=== PATIENT | female | born 1955 | race Two or more races ===

== ENCOUNTER 2022-09-09 17:10 | Inpatient (IN) | payer MEDICARE, OTHER ==
[~2022-09-09] VITALS: Ht 165.1 cm; Wt 64.0 kg
[2022-09-09 17:47] LABS: MEAN CORPUSCULAR HEMOGLOBIN 28.5 uug (24.7-32.8); MEAN CORPUSCULAR VOLUME 86.2 fL (75.5-95.3); PLATELET COUNT (AUTO) 217 K/uL (179-408)
[2022-09-09] MEDS ORDERED: MAG355OR18 PO (17:54)
[2022-09-09] MEDS ORDERED: CLOP75TA33 PO (17:54)
[2022-09-09] MEDS ORDERED: DOCU-141 PO (17:54)
[2022-09-09] MEDS ORDERED: NA P133E RC (17:54)
[2022-09-09] MEDS ORDERED: MAGN400O6 PO (17:54)
[2022-09-09] MEDS ORDERED: POLY17PO4 PO (17:54)
[2022-09-09] MEDS ORDERED: PREG50CA PO (17:54)
[2022-09-09] MEDS ORDERED: OLAN5TAB3 PO (17:54)
[2022-09-09] MEDS ORDERED: ATOR80TA PO (17:54)
[2022-09-09] MEDS ORDERED: ACET-2154 PO (17:54)
[2022-09-09] MEDS ORDERED: DIVA250T4 PO (17:54)
[2022-09-09] MEDS ORDERED: ONDA4TAB5 PO (17:54)
[2022-09-09] MEDS ORDERED: ERGOCALCIFEROL PO (17:54)
[2022-09-09] MEDS ORDERED: CALC-494 PO (17:54)
[2022-09-09 17:58] LABS: POTASSIUM 3.9 mmol/L (3.5-5.1)
[2022-09-09 18:04] LABS: BILIRUBIN,TOTAL 0.2 mg/dL (0.2-1.0); TOTAL PROTEIN, SERUM 6.9 g/dL (6.4-8.2)
[2022-09-09 18:07] LABS: ACETAMINOPHEN < 10.0 ug/mL (10-30)
--- NOTE | 2022-09-09 19:07 | NUR ---
PT IS IN ROOM #2B. DR HOWARD EVALUATED THE PT.
[2022-09-09 20:06] LABS: *BILIRUBIN,URIN NEGATIVE (NEGATIVE); *BLOOD, URINE 2+ (NEGATIVE); *CLARITY,URINE CLEAR (CLEAR); *COLOR,URINE YELLOW (YELLOW); *KETONES,URINE NEGATIVE (NEGATIVE); *UROBILINOGEN,URINE 0.2 E.U./dl (NORMAL); LEUKOCYTE ESTERASE ,URINE TRACE (NEGATIVE); NITRITE, URINE NEGATIVE (NEGATIVE); UGLUCOSE NEGATIVE (NEGATIVE)
[2022-09-09 20:15] LABS: *AMPHETAMINE, URINE NEGATIVE (NEGATIVE); *CANNABINOID, URINE NEGATIVE (NEGATIVE); *COCCAINE, URINE NEGATIVE (NEGATIVE); *PHENCYCLIDINE SCREEN,URINE NEGATIVE (NEGATIVE)
--- NOTE | 2022-09-09 20:31 | NUR ---
Called Nataliia (Crisis team) for psych evaluation. Per Nataliia, she will come to evaluate patient.
[2022-09-09 20:32] LABS: BACTERIA,URINE FEW /HPF (NONE SEEN); SQUAMOUS EPITHELIAL CELL,UR MODERATE /HPF (NONE SEEN)
[2022-09-09] MEDS ORDERED: MAGNESIUM HYDROXIDE 30 ML LIQUID UDC PO PRN (21:00)
[2022-09-09] MEDS ORDERED: MAG HYDROX/AL HYDROX/SIMETH 30 ML LIQUID UDC PO PRN (21:00)
--- NOTE | 2022-09-09 22:33 | NUR ---
Per Dr. Weir patient is medically cleared.
[2022-09-09] MEDS ORDERED: HALOPERIDOL LACTATE 5 MG/1 ML VIAL ONE (22:35)
[2022-09-09] MEDS ORDERED: diphenhydrAMINE 50 MG/1 ML VIAL ONE (22:35)
[2022-09-09] MEDS ORDERED: LORAZEPAM 2 MG/1 ML VIAL ONE (22:36)
[2022-09-09] MEDS ORDERED: HALOPERIDOL LACTATE 5 MG/1 ML VIAL IM ONE (22:45)
[2022-09-09] MEDS ORDERED: diphenhydrAMINE 50 MG/1 ML VIAL IM ONE (22:45)
[2022-09-09] MEDS ORDERED: LORAZEPAM 2 MG/1 ML VIAL IM ONE (22:45)
--- NOTE | 2022-09-09 22:51 | NUR ---
Called third floor to give report to M[facility]. RN unavaliable at this time. Waiting for call back.
--- NOTE | 2022-09-09 23:00 | NUR ---
Report given to Didier JORDAN.
--- NOTE | 2022-09-09 23:05 | NUR ---
Patient taken to MHU room 145B via wheelchair with personal belongings. Patient in stable condition, no signs of acute distress noted.
[2022-09-09] MEDS ORDERED: CALCIUM CARBONATE 500 MG TAB.CHEW PO PRN (23:45)
[2022-09-09] MEDS ORDERED: ACETAMINOPHEN 325 MG TABLET PO PRN (23:45)
[2022-09-09 23:57] VITALS: BP 98/59; TEMP 98.4; O2SAT 99
[2022-09-10] MEDS ORDERED: MAGNESIUM HYDROXIDE 30 ML LIQUID UDC PO PRN
[2022-09-10] MEDS ORDERED: BLOOD SUGAR DIAGNOSTIC 1 EACH STRIP VI ONE
[2022-09-10] MEDS ORDERED: MAG HYDROX/AL HYDROX/SIMETH 30 ML LIQUID UDC PO PRN
--- NOTE | 2022-09-10 02:29 | NUR ---
Nursing Admission Note: Received 67 y/o female on a 5150 hold d/t being Gravely Disabled. Patient resides at [facility] in [place], [place]. Per hold, pt had become too hard to care for via refusing care from her staff, becoming aggressive toward them, and also tried to elope from her facility. Upon face to face assessment, patient was AOx1, confused, disoriented, disorganized, disheveled, and over-all non-compliant with direction/orders. Per ER report, patient constantly wandered and refused to follow directions. Although she is self-ambulatory, she has an unsteady gait and balance, and was x2 assist during admission. It was possibly d/t ER staff having to give her IM cocktail (2mg Ativan, 50mg Benadryl, 5mg Haldol). Pt was given her Advisement and Patient's Handbook. She will be under the care of Dr. Burns and GEODETIC SURVEYOR TECHNOLOGIST Victor Hugo.
[2022-09-10] MEDS: LORAZEPAM 0.5 MG TABLET PO PRN ×2 (03:20→21:04)
--- NOTE | 2022-09-10 03:21 | NUR ---
Patient became restless and continued to try to get out of her gerichair that was positioned next to the nurses station. Gave Ativan 0.5mg po prn for anxiety mgt. Safe environment provided. Will continue to monitor.
[2022-09-10] MEDS: ACETAMINOPHEN 325 MG TABLET PO PRN (05:36)
[2022-09-10 07:48] VITALS: BP 121/69; TEMP 98.4; O2SAT 99
[2022-09-10] MEDS: CLOPIDOGREL 75 MG TABLET PO SCH (08:41)
[2022-09-10] MEDS: DOCUSATE SODIUM 100 MG CAPSULE PO SCH (08:41)
[2022-09-10] MEDS: MIRALAX 17 GM POWD.PACK PO SCH (08:42)
[2022-09-10 09:08] LABS: POTASSIUM 4.2 mmol/L (3.5-5.1)
[2022-09-10] MEDS: OLANZAPINE 5 MG TABLET PO SCH ×2 (12:41→17:13)
[2022-09-10] MEDS: DIVALPROEX 250 MG TABLET.DR PO SCH ×2 (12:41→17:14)
--- NOTE | 2022-09-10 14:29 | NUR ---
Patient is withdrawn, isolative, low energy, quiet, forgetful, confused, disorganized, compliant with medications, preoccupied, anxious at times. Patient is A/O X 1 to person. Emotional support provided. Fall and safety precautions implemented.
--- NOTE | 2022-09-10 15:37 | NUR ---
KINZA Initial Discharge Note: Pt currently resides at [facility] ([phone]) located at [address] [place] [address]. KINZA contacted pt's son, Kevin and left a voicemail for a call back to discuss pt's discharge plan. It is unclear at this time if pt is welcome back upon discharge. KINZA will continue to work with tp, family and MD to ensure a safe and proper discharge plan.
--- NOTE | 2022-09-10 15:40 | NUR ---
Firearms Report: Claims Support Specialist completed and submitted a [employer] firearms report for 5150 grave disability certifications. A copy of report has been placed in patient chart.
[2022-09-10 16:01] VITALS: BP 105/63; TEMP 97.6; O2SAT 98
[2022-09-10] MEDS: PREGABALIN 50 MG CAPSULE PO SCH (17:14)
[2022-09-10 20:39] VITALS: BP 116/64; TEMP 98.2; O2SAT 99
[2022-09-10] MEDS: ATORVASTATIN 40 MG TABLET PO SCH (21:03)
--- NOTE | 2022-09-11 06:14 | NUR ---
Patient stayed in her room for entire shift. She is self ambulatory and was able to bring herself to her restroom. Safe environment provided.
[2022-09-11 08:08] VITALS: BP 126/64; TEMP 98; O2SAT 96
[2022-09-11] MEDS: MIRALAX 17 GM POWD.PACK PO SCH (08:20)
[2022-09-11] MEDS: PREGABALIN 50 MG CAPSULE PO SCH ×2 (08:21→16:11)
[2022-09-11] MEDS: DIVALPROEX 250 MG TABLET.DR PO SCH ×3 (08:21→16:11)
[2022-09-11] MEDS: DOCUSATE SODIUM 100 MG CAPSULE PO SCH (08:21)
[2022-09-11] MEDS: CLOPIDOGREL 75 MG TABLET PO SCH (08:21)
[2022-09-11] MEDS: OLANZAPINE 5 MG TABLET PO SCH ×3 (08:21→16:11)
[2022-09-11] MEDS: LORAZEPAM 0.5 MG TABLET PO PRN ×2 (10:56→21:57)
[2022-09-11 15:13] VITALS: BP 100/46; TEMP 98; O2SAT 96
[2022-09-11 20:00] VITALS: BP 105/73; TEMP 98.7; O2SAT 97
[2022-09-11] MEDS: ATORVASTATIN 40 MG TABLET PO SCH (21:57)
[2022-09-12 07:58] VITALS: BP 104/60; TEMP 98.4; O2SAT 97
[2022-09-12] MEDS: PREGABALIN 50 MG CAPSULE PO SCH ×2 (08:25→16:59)
[2022-09-12] MEDS: OLANZAPINE 5 MG TABLET PO SCH ×3 (08:25→16:59)
[2022-09-12] MEDS: CLOPIDOGREL 75 MG TABLET PO SCH (08:25)
[2022-09-12] MEDS: MIRALAX 17 GM POWD.PACK PO SCH (08:25)
[2022-09-12] MEDS: DOCUSATE SODIUM 100 MG CAPSULE PO SCH (08:25)
[2022-09-12] MEDS: DIVALPROEX 250 MG TABLET.DR PO SCH ×3 (08:25→16:59)
--- NOTE | 2022-09-12 14:59 | NUR ---
Patient is withdrawn, quiet, isolative, not engage in activities or interactions, cooperative with nursing care, compliant with medications. Patient is A/O X 2 to person. Emotional support provided. Fall and safety precautions provided.
[2022-09-12 16:19] VITALS: BP 99/51; TEMP 98.1; O2SAT 97
[2022-09-12] MEDS: ACETAMINOPHEN 325 MG TABLET PO PRN (19:48)
[2022-09-12] MEDS: LORAZEPAM 0.5 MG TABLET PO PRN (19:48)
[2022-09-12 20:05] VITALS: BP 122/77; TEMP 98.4; O2SAT 99
[2022-09-12] MEDS: ATORVASTATIN 40 MG TABLET PO SCH (20:44)
[2022-09-12] MEDS: TEMAZEPAM 7.5 MG CAPSULE PO PRN (21:29)
--- NOTE | 2022-09-13 04:36 | NUR ---
Pt is confused, disoriented, anxious, restless and nonsensical. Pt was pacing all over the unit going into other patients rooms. Pt was pushing staff to go in to the nursing station. Pt stated "that chair is mine let me in that is my chair". Pt was redirected and reoriented. Pt is compliant with medications. Pt is A/O X1 and unable to care for self and needs assistance with ADLs. Reassurance provided, safety measures in place, continue to monitor for safety,continue with treatment plan.
[2022-09-13 07:37] VITALS: BP 107/64; TEMP 97.4; O2SAT 97
[2022-09-13] MEDS: OLANZAPINE 5 MG TABLET PO SCH ×2 (08:31→12:18)
[2022-09-13] MEDS: PREGABALIN 50 MG CAPSULE PO SCH ×2 (08:31→16:27)
[2022-09-13] MEDS: DIVALPROEX 250 MG TABLET.DR PO SCH ×3 (08:31→16:27)
[2022-09-13] MEDS: CLOPIDOGREL 75 MG TABLET PO SCH (08:32)
[2022-09-13] MEDS: MIRALAX 17 GM POWD.PACK PO SCH (08:32)
[2022-09-13] MEDS: DOCUSATE SODIUM 100 MG CAPSULE PO SCH (08:32)
[2022-09-13 15:18] LABS: *BILIRUBIN,URIN NEGATIVE (NEGATIVE); *CLARITY,URINE CLEAR (CLEAR); *COLOR,URINE YELLOW (YELLOW); *KETONES,URINE NEGATIVE (NEGATIVE); *UROBILINOGEN,URINE 0.2 E.U./dl (NORMAL); LEUKOCYTE ESTERASE ,URINE NEGATIVE (NEGATIVE); NITRITE, URINE NEGATIVE (NEGATIVE); UGLUCOSE NEGATIVE (NEGATIVE)
[2022-09-13 15:20] LABS: *BLOOD, URINE TRACE (NEGATIVE)
[2022-09-13 16:18] VITALS: BP 95/54; TEMP 97.9; O2SAT 96
[2022-09-13 17:34] LABS: BACTERIA,URINE FEW /HPF (NONE SEEN); SQUAMOUS EPITHELIAL CELL,UR FEW /HPF (NONE SEEN); WBC,URINE 0-3 /HPF (0-3)
--- NOTE | 2022-09-13 18:41 | NUR ---
patient is confused and disoriented restless wandering in the unit ,patient unable to follow direction get in to everyone's room, compliant with all medication .no s/s of pain or discomfort.patient with poor insight and poor impulse control will close monitoring for safety.
[2022-09-13 19:59] VITALS: BP 136/60; TEMP 97.6; O2SAT 95
[2022-09-13] MEDS: OLANZAPINE 2.5 MG TABLET PO SCH (20:14)
[2022-09-13] MEDS: ATORVASTATIN 40 MG TABLET PO SCH (20:14)
[2022-09-13] MEDS: LORAZEPAM 0.5 MG TABLET PO PRN (21:56)
--- NOTE | 2022-09-13 22:30 | NUR ---
Patient noted A/O x1. she is restless, pacing the hallway. she is intrusive, she gets into other patient's rooms. She is hard to redirect, she gets easily irritable. Patient requires constant reality checks and supervision. She requires PO PRN Ativan. Patient is reassured for her safety. safety and fall precautions are in place. She was given PO Fluids and snacks. will continue to monitor.
[2022-09-13] MEDS: TEMAZEPAM 7.5 MG CAPSULE PO PRN (22:55)
[2022-09-14 07:54] VITALS: BP 93/49; TEMP 98.3; O2SAT 97
[2022-09-14] MEDS: CLOPIDOGREL 75 MG TABLET PO SCH (08:54)
[2022-09-14] MEDS: PREGABALIN 50 MG CAPSULE PO SCH ×2 (08:54→16:33)
[2022-09-14] MEDS: DIVALPROEX 250 MG TABLET.DR PO SCH ×3 (08:54→16:33)
[2022-09-14] MEDS: DOCUSATE SODIUM 100 MG CAPSULE PO SCH (08:55)
[2022-09-14] MEDS: MIRALAX 17 GM POWD.PACK PO SCH ×2 (08:56→12:56)
[2022-09-14] MEDS: OLANZAPINE 5 MG TABLET PO SCH ×2 (08:56→16:33)
[2022-09-14 16:18] VITALS: BP 118/73; TEMP 98; O2SAT 98
[2022-09-14] MEDS: GLUCERNA SHAKE 237 ML CAN PO SCH (16:34)
[2022-09-14 20:02] VITALS: BP 101/70; TEMP 98.1; O2SAT 96
--- NOTE | 2022-09-14 20:30 | NUR ---
received patient in her room in bed. She is noted sleeping but easily arousable. she is noted A/O x 1 her speech is disorganized, she is forgetful. she stated, "I am ready to go home". she has impaired insight and judgment as to the reason for her admission to MHU. Patient needs constant reality orientation and closed supervisions as she wonders into other patient's rooms. PO fluids and snacks were given. she is reassured for his safety. safety and fall precautions are in place. will continue to monitor.
[2022-09-14] MEDS: ATORVASTATIN 40 MG TABLET PO SCH (21:07)
[2022-09-14] MEDS: OLANZAPINE 2.5 MG TABLET PO SCH (21:07)
[2022-09-14] MEDS: LORAZEPAM 0.5 MG TABLET PO PRN (22:41)
--- NOTE | 2022-09-15 07:07 | NUR ---
PATIENT SLEPT FOR APPROX 5 HRS THROUGH THE NIGHT.SHE IS NOTED LESS ANXIOUS LESS RESTLESS. SHE IS ABLE TO COMPLY WITH PLAN OF CARE. WILL CONTINUE TO MONITOR.
--- NOTE | 2022-09-15 07:15 | NUR ---
GPS Nursing notes: Patient is lying in bed asleep with no S/S of distress noted. fall and safety precaution implemented, will continue to monitor.
[2022-09-15 08:08] VITALS: BP 100/52; TEMP 97.6; O2SAT 99
[2022-09-15 08:27] LABS: HEMATOCRIT 39.6 % (31.2-41.9); MEAN CORPUSCULAR HEMOGLOBIN 28.6 uug (24.7-32.8); MEAN CORPUSCULAR VOLUME 86.4 fL (75.5-95.3); PLATELET COUNT (AUTO) 221 K/uL (179-408)
[2022-09-15] MEDS: CLOPIDOGREL 75 MG TABLET PO SCH (08:50)
[2022-09-15] MEDS: GLUCERNA SHAKE 237 ML CAN PO SCH ×2 (08:50→16:42)
[2022-09-15] MEDS: OLANZAPINE 5 MG TABLET PO SCH ×2 (08:50→16:42)
[2022-09-15] MEDS: DOCUSATE SODIUM 100 MG CAPSULE PO SCH (08:50)
[2022-09-15] MEDS: MIRALAX 17 GM POWD.PACK PO SCH (08:50)
[2022-09-15] MEDS: DIVALPROEX 250 MG TABLET.DR PO SCH ×3 (08:50→16:42)
[2022-09-15] MEDS: PREGABALIN 50 MG CAPSULE PO SCH ×2 (08:50→16:42)
[2022-09-15 09:06] LABS: BILIRUBIN,TOTAL 0.4 mg/dL (0.2-1.0); CREATININE 0.9 mg/dL (0.6-1.3); POTASSIUM 4.1 mmol/L (3.5-5.1); TOTAL PROTEIN, SERUM 6.6 g/dL (6.4-8.2)
--- NOTE | 2022-09-15 10:58 | NUR ---
GPS Notes: Patient is guarded, isolative, denies pain or discomforts, medication compliant, ate breakfast, refused to go to groups, 'No I just want to stay here". fall and safety precaution implemented, emotional support provided, will continue to monitor.
[2022-09-15 16:45] VITALS: BP 98/48; TEMP 97.8; O2SAT 98
--- NOTE | 2022-09-15 17:56 | NUR ---
GPS Notes: Patient stayed in room most the day, patient stated, "Thank you for you help". non-social, refused groups, walks to the bathroom with steady gait with good balance, fall and safety precaution implemented, emotional support provided.
[2022-09-15 19:58] VITALS: BP 101/50; TEMP 97.9; O2SAT 98
--- NOTE | 2022-09-15 20:30 | NUR ---
received patient in her room in bed. She is noted sleeping but easily arousable. she is noted A/O x1. she is forgetful. She is able to ambulate with steady gait and able to make her needs known. pt is unable to have a meaningful conversation with this typewriter ribbon winder. Patient needs constant reality orientation and closed supervision. PO fluids and snacks were given. she is reassured for her safety. safety and fall precautions are in place. will continue to monitor.
[2022-09-15] MEDS: OLANZAPINE 2.5 MG TABLET PO SCH (21:50)
[2022-09-15] MEDS: ATORVASTATIN 40 MG TABLET PO SCH (21:50)
[2022-09-16 07:53] VITALS: BP 115/60; TEMP 98; O2SAT 98
[2022-09-16] MEDS: CLOPIDOGREL 75 MG TABLET PO SCH (09:08)
[2022-09-16] MEDS: DOCUSATE SODIUM 100 MG CAPSULE PO SCH (09:08)
[2022-09-16] MEDS: MIRALAX 17 GM POWD.PACK PO SCH (09:08)
[2022-09-16] MEDS: OLANZAPINE 5 MG TABLET PO SCH ×2 (09:08→17:31)
[2022-09-16] MEDS: PREGABALIN 50 MG CAPSULE PO SCH ×2 (09:08→17:31)
[2022-09-16] MEDS: DIVALPROEX 250 MG TABLET.DR PO SCH ×3 (09:08→17:31)
[2022-09-16] MEDS: GLUCERNA SHAKE 237 ML CAN PO SCH ×2 (09:09→17:32)
--- NOTE | 2022-09-16 10:05 | NUR ---
Patient had court hearing today, and roof bolting coal miner Luci Moore gave 14 Day hold probable cause for GD.
[2022-09-16 15:24] VITALS: BP 107/68; TEMP 98; O2SAT 98
--- NOTE | 2022-09-16 15:59 | NUR ---
Received patient sleeping in her room. Patient is A/O X 1 -2 to person. Patient is disorganized, forgetful, disoriented, cooperative with nursing care, compliant with medications. Patient is more interactive with staff, demanding, needy. Patient is encourage to verbalize feelings and emotions. Fall and safety precautions implemented.
[2022-09-16 20:19] VITALS: BP 108/73; TEMP 98.2
[2022-09-16] MEDS: OLANZAPINE 2.5 MG TABLET PO SCH (20:30)
[2022-09-16] MEDS: ATORVASTATIN 40 MG TABLET PO SCH (20:30)
[2022-09-16] MEDS: TEMAZEPAM 7.5 MG CAPSULE PO PRN (21:29)
--- NOTE | 2022-09-17 05:32 | NUR ---
Patient received in the hallway, intrusive, going inside the nursing station. Patient needs re-direction. she is confused, disorganized and forgetful. She is med-compliant with minimal prompting needed. PRN temazepam give, effective. Slept 6H this shift. No distress noted. Frequent rounding observed, patient kept safe at all times.
[2022-09-17 08:01] VITALS: BP 140/84; TEMP 98; O2SAT 98
[2022-09-17] MEDS: DIVALPROEX 250 MG TABLET.DR PO SCH ×3 (09:12→17:47)
[2022-09-17] MEDS: PREGABALIN 50 MG CAPSULE PO SCH ×2 (09:12→17:47)
[2022-09-17] MEDS: GLUCERNA SHAKE 237 ML CAN PO SCH ×2 (09:13→17:48)
[2022-09-17] MEDS: DOCUSATE SODIUM 100 MG CAPSULE PO SCH (09:13)
[2022-09-17] MEDS: MIRALAX 17 GM POWD.PACK PO SCH (09:13)
[2022-09-17] MEDS: OLANZAPINE 5 MG TABLET PO SCH ×2 (09:13→17:47)
[2022-09-17] MEDS: CLOPIDOGREL 75 MG TABLET PO SCH (09:13)
[2022-09-17 15:16] VITALS: BP 98/65; TEMP 98; O2SAT 98
--- NOTE | 2022-09-17 16:17 | NUR ---
Patient is confused, forgetful, intrusive, pacing in the hallway, fixated on leaving the hospital. Patient states "I need to go home now, where's the exit?" Patient is cooperative with nursing care, compliant with medications, needs lots of redirection. Reassurance given. Fall and safety precautions implemented.
[2022-09-17 20:00] VITALS: BP 118/72; TEMP 98.5; O2SAT 98
[2022-09-17] MEDS: OLANZAPINE 2.5 MG TABLET PO SCH (21:54)
[2022-09-17] MEDS: ATORVASTATIN 40 MG TABLET PO SCH (21:55)
[2022-09-18 07:18] LABS: CREATININE 0.9 mg/dL (0.6-1.3); POTASSIUM 3.8 mmol/L (3.5-5.1)
[2022-09-18 07:30] VITALS: BP 125/56; TEMP 98.2; O2SAT 100
[2022-09-18] MEDS: OLANZAPINE 5 MG TABLET PO SCH ×2 (08:46→16:46)
[2022-09-18] MEDS: PREGABALIN 50 MG CAPSULE PO SCH ×2 (08:46→16:46)
[2022-09-18] MEDS: DOCUSATE SODIUM 100 MG CAPSULE PO SCH (08:46)
[2022-09-18] MEDS: MIRALAX 17 GM POWD.PACK PO SCH (08:46)
[2022-09-18] MEDS: DIVALPROEX 250 MG TABLET.DR PO SCH ×3 (08:46→16:46)
[2022-09-18] MEDS: GLUCERNA SHAKE 237 ML CAN PO SCH ×2 (08:46→16:47)
[2022-09-18] MEDS: CLOPIDOGREL 75 MG TABLET PO SCH (08:46)
--- NOTE | 2022-09-18 15:03 | NUR ---
Patient is intrusive, goes to nursing station and other patient's room constantly, needs to be redirected all the time, confused, forgetful, pleasant, restless, paces int he hallway looking for the exit. Patient is A/O X 2 to person. Reassurance given. Fall and safety precautions implemented.
[2022-09-18 15:15] VITALS: BP 116/69; TEMP 98.2; O2SAT 98
[2022-09-18 19:56] VITALS: BP 119/67; TEMP 98.1; O2SAT 98
[2022-09-18] MEDS: LORAZEPAM 0.5 MG TABLET PO PRN (20:01)
[2022-09-18] MEDS: ATORVASTATIN 40 MG TABLET PO SCH (20:01)
[2022-09-18] MEDS: OLANZAPINE 2.5 MG TABLET PO SCH (20:51)
--- NOTE | 2022-09-18 21:23 | NUR ---
GPS: Remains confused,disoriented. Poor insight to present situation. Pt.was anxious,restless and going in and out of other pt's rooms. Frequent re-direction provided by staff. Meds.as ordered. Fall precautions observed. Will continue to monitor.
[2022-09-18] MEDS: TEMAZEPAM 7.5 MG CAPSULE PO PRN (22:49)
--- NOTE | 2022-09-19 00:32 | NUR ---
GPS: Pt.remains awake at this time. Sleeping pill given earlier was ineffective. Remains anxious,confused,forgetful and pacing back and forth inside her room. Constant re-direction provided by staff. Environment kept free from hazard at all times. Will continue to monitor behavior.
[2022-09-19 07:48] VITALS: BP 114/76; TEMP 98.9; O2SAT 99
[2022-09-19 07:53] VITALS: BP 93/53; TEMP 97.4; O2SAT 98
[2022-09-19] MEDS: CLOPIDOGREL 75 MG TABLET PO SCH (08:43)
[2022-09-19] MEDS: DIVALPROEX 250 MG TABLET.DR PO SCH ×3 (08:43→16:48)
[2022-09-19] MEDS: OLANZAPINE 5 MG TABLET PO SCH ×2 (08:43→16:48)
[2022-09-19] MEDS: DOCUSATE SODIUM 100 MG CAPSULE PO SCH (08:43)
[2022-09-19] MEDS: PREGABALIN 50 MG CAPSULE PO SCH ×2 (08:43→16:48)
[2022-09-19] MEDS: GLUCERNA SHAKE 237 ML CAN PO SCH ×2 (08:44→17:00)
[2022-09-19] MEDS: MIRALAX 17 GM POWD.PACK PO SCH (09:23)
[2022-09-19 16:01] VITALS: BP 101/61; TEMP 98; O2SAT 97
--- NOTE | 2022-09-19 16:25 | NUR ---
Pt is confused, disoriented, less anxious and less restless . Pt slept for most of the day .Pt does not have a viable plan for care and can not have a meaning full conversation. Pt is compliant with medications and nursing care. Pt is A/O X1 and unable to care for self and needs assistance with ADLs. Reassurance and emotional provided, safety measures in place, continue to monitor for safety,continue with treatment plan.
[2022-09-19 19:47] VITALS: BP 121/66; TEMP 98; O2SAT 96
[2022-09-19] MEDS: ATORVASTATIN 40 MG TABLET PO SCH (20:36)
[2022-09-19] MEDS: OLANZAPINE 2.5 MG TABLET PO SCH (20:36)
[2022-09-19] MEDS: LORAZEPAM 0.5 MG TABLET PO PRN (22:41)
--- NOTE | 2022-09-19 22:53 | NUR ---
Patient was restless, confused, disoriented, and very difficult to redirect. Patient would not listen to this nurse nor other nurses on shift. Placed patient onto gerichair d/t wandering, panic, and experiencing paranoia. Safe environment provided. Gave Ativan 0.5mg po prn. Will continue to monitor.
[2022-09-20] MEDS: TEMAZEPAM 7.5 MG CAPSULE PO PRN (02:30)
[2022-09-20 07:52] VITALS: BP 95/52; TEMP 97.6; O2SAT 99
[2022-09-20] MEDS: DOCUSATE SODIUM 100 MG CAPSULE PO SCH (08:41)
[2022-09-20] MEDS: DIVALPROEX 250 MG TABLET.DR PO SCH ×3 (08:41→16:54)
[2022-09-20] MEDS: PREGABALIN 50 MG CAPSULE PO SCH ×2 (08:41→16:54)
[2022-09-20] MEDS: OLANZAPINE 5 MG TABLET PO SCH ×2 (08:41→16:53)
[2022-09-20] MEDS: CLOPIDOGREL 75 MG TABLET PO SCH (08:41)
[2022-09-20] MEDS: GLUCERNA SHAKE 237 ML CAN PO SCH ×2 (08:43→17:13)
[2022-09-20] MEDS: MIRALAX 17 GM POWD.PACK PO SCH (08:51)
[2022-09-20 15:58] VITALS: BP 100/66; TEMP 97.8; O2SAT 68
--- NOTE | 2022-09-20 16:07 | NUR ---
Pt is A/O X1 and still confused, disoriented, less anxious and more redirectable. Pt is compliant with medications and nursing care. Emotional provided, safety measures in place, continue to monitor for safety,continue with treatment plan.
[2022-09-20] MEDS: OLANZAPINE 2.5 MG TABLET PO SCH (20:36)
[2022-09-20] MEDS: ATORVASTATIN 40 MG TABLET PO SCH (20:36)
[2022-09-20 21:43] VITALS: BP 116/71; TEMP 98.3; O2SAT 97
[2022-09-20] MEDS: LORAZEPAM 0.5 MG TABLET PO PRN (22:59)
--- NOTE | 2022-09-20 22:59 | NUR ---
Patient was restless, disoriented, and still confused. Pt was still hard to redirect. Pt was found taking off her bedsheets, blankets, etc, and as usual stated it was someone else that did it and not her. Safe environment continually provided. Will continue to monitor. Gave Ativan 0.5mg po prn to help with restlessness.
[2022-09-21] MEDS: TEMAZEPAM 7.5 MG CAPSULE PO PRN (01:02)
--- NOTE | 2022-09-21 01:07 | NUR ---
Patient woke up and became restless without a plan of care. She wander into the waggoner making nonsensical statements. Re-directable, yet needs continuous prompting and guidance. Gave Temazepam 7.5mg po prn to help her sleep. Safety measures provided. Will continue to monitor.
[2022-09-21 08:04] VITALS: BP 93/47; TEMP 97.1; O2SAT 99
[2022-09-21] MEDS: LORAZEPAM 0.5 MG TABLET PO PRN (08:19)
[2022-09-21] MEDS: OLANZAPINE 5 MG TABLET PO SCH ×3 (09:13→22:12)
[2022-09-21] MEDS: DOCUSATE SODIUM 100 MG CAPSULE PO SCH (09:13)
[2022-09-21] MEDS: DIVALPROEX 250 MG TABLET.DR PO SCH ×3 (09:13→17:07)
[2022-09-21] MEDS: CLOPIDOGREL 75 MG TABLET PO SCH (09:13)
[2022-09-21] MEDS: GLUCERNA SHAKE 237 ML CAN PO SCH ×2 (09:14→17:08)
[2022-09-21] MEDS: MIRALAX 17 GM POWD.PACK PO SCH (09:14)
[2022-09-21] MEDS: PREGABALIN 50 MG CAPSULE PO SCH ×2 (09:14→17:07)
[2022-09-21 16:02] VITALS: BP 101/53; TEMP 98; O2SAT 74
--- NOTE | 2022-09-21 18:22 | NUR ---
GPS: Nursing Notes: Thought Disorder: Patient is awake and responding to her name, disoriented, confused, wandering around the unit aimlessly, isolative and withdrawn in her room at times, disorganized, poor insight, impaired judgment, gets easily irritable when redirected, labile, unpredictable behavior, talking incoherently, refusing to participate in therapeutic groups, unable to formulate a viable plan for self care, continue to monitor for safety, continue with treatment plan.
[2022-09-21 21:05] VITALS: BP 112/61; TEMP 98; O2SAT 98
[2022-09-21] MEDS: ATORVASTATIN 40 MG TABLET PO SCH (22:12)
--- NOTE | 2022-09-22 06:32 | NUR ---
GPS: Pt.was less anxious,restless during the night. Remains confused,disoriented and disorganized. Med.compliant. Re-assured and re-directed. Fall precautions observed.
[2022-09-22 07:35] LABS: HEMATOCRIT 37.2 % (31.2-41.9); MEAN CORPUSCULAR HEMOGLOBIN 29.6 uug (24.7-32.8); MEAN CORPUSCULAR VOLUME 86.7 fL (75.5-95.3); PLATELET COUNT (AUTO) 208 K/uL (179-408)
[2022-09-22 07:42] VITALS: BP 100/67; TEMP 98.3; O2SAT 99
[2022-09-22 08:17] LABS: BILIRUBIN,TOTAL 0.4 mg/dL (0.2-1.0); CREATININE 0.9 mg/dL (0.6-1.3); POTASSIUM 4.3 mmol/L (3.5-5.1); TOTAL PROTEIN, SERUM 6.1 g/dL (6.4-8.2)
[2022-09-22] MEDS: PREGABALIN 50 MG CAPSULE PO SCH ×2 (08:31→16:19)
[2022-09-22] MEDS: DIVALPROEX 250 MG TABLET.DR PO SCH ×3 (08:31→16:20)
[2022-09-22] MEDS: DOCUSATE SODIUM 100 MG CAPSULE PO SCH (08:31)
[2022-09-22] MEDS: CLOPIDOGREL 75 MG TABLET PO SCH (08:31)
[2022-09-22] MEDS: MIRALAX 17 GM POWD.PACK PO SCH (08:31)
[2022-09-22] MEDS: OLANZAPINE 5 MG TABLET PO SCH ×3 (08:31→20:15)
[2022-09-22] MEDS: GLUCERNA SHAKE 237 ML CAN PO SCH ×2 (08:32→16:30)
[2022-09-22] MEDS: LORAZEPAM 0.5 MG TABLET PO PRN (11:13)
--- NOTE | 2022-09-22 11:52 | NUR ---
GPS: Nursing Notes: Thought Disorder: Patient is awake and responding to her name, disoriented, impaired judgment, wandering around the unit aimlessly, poor insight, confused, disorganized, stated "The doctor said that I am crazy... I am not here for that..." Anxious affect, poor impulse control, unable to formulate a viable plan for self care, redirected and reoriented during shift, AWOL risk, stated "I want to go home.. I need to go to work.." Continue to monitor for safety, continue with treatment plan.
[2022-09-22 15:48] VITALS: BP 110/64; TEMP 98.6; O2SAT 100
[2022-09-22 20:00] VITALS: BP 106/60; TEMP 98.2; O2SAT 99
[2022-09-22] MEDS: ATORVASTATIN 40 MG TABLET PO SCH (20:15)
[2022-09-22] MEDS: TEMAZEPAM 7.5 MG CAPSULE PO PRN (21:41)
[2022-09-23] MEDS: GLUCERNA SHAKE 237 ML CAN PO SCH ×2 (08:00→17:35)
[2022-09-23] MEDS: PREGABALIN 50 MG CAPSULE PO SCH ×2 (08:46→17:22)
[2022-09-23] MEDS: DOCUSATE SODIUM 100 MG CAPSULE PO SCH (08:47)
[2022-09-23] MEDS: OLANZAPINE 5 MG TABLET PO SCH ×3 (08:47→20:34)
[2022-09-23] MEDS: CLOPIDOGREL 75 MG TABLET PO SCH (08:47)
[2022-09-23] MEDS: DIVALPROEX 250 MG TABLET.DR PO SCH ×3 (08:47→17:21)
[2022-09-23] MEDS: MIRALAX 17 GM POWD.PACK PO SCH (09:00)
--- NOTE | 2022-09-23 15:46 | NUR ---
Pt is confused, disoriented, anxious, restless and nonsensical. Pt is intrusive with other patients and getting in other patients way, touching them and making them uncomfortable. Pt goes into other patients rooms grabbing their stuff. Pt was redirected and reoriented. Pt is compliant with medications. Pt is A/O X1 and unable to care for self and needs assistance with ADLs. Reassurance provided, safety measures in place, continue to monitor for safety,continue with treatment plan.
[2022-09-23 15:53] VITALS: BP 105/76; TEMP 98; O2SAT 98
--- NOTE | 2022-09-23 16:20 | NUR ---
KINZA Family Contact: KINZA left a voicemail for Pts son, Adventist [phone] informing him of pt's discharge details. Adventist is aware and agreeable from previous discussion.
[2022-09-23] MEDS: LORAZEPAM 0.5 MG TABLET PO PRN (17:21)
[2022-09-23 20:17] VITALS: BP 111/68; TEMP 98.2; O2SAT 97
[2022-09-23] MEDS: ATORVASTATIN 40 MG TABLET PO SCH (20:33)
[2022-09-23] MEDS: TEMAZEPAM 7.5 MG CAPSULE PO PRN (23:09)
--- NOTE | 2022-09-24 06:26 | NUR ---
GPS: Pt. was less anxious and restless last night although still needed re-direction due to confusion and being disorganized. Med.compliant. No aggressive behavior noted. Safe environment provided. Needs attended. Will continue to monitor.
[2022-09-24] MEDS: GLUCERNA SHAKE 237 ML CAN PO SCH (08:00)
[2022-09-24 08:05] VITALS: BP 120/62; TEMP 98; O2SAT 98
--- NOTE | 2022-09-24 09:05 | NUR ---
KINZA Discharge Note: Pt will be discharged to [facility] long[facility]term facility located at [id number] [place] [phone] ([phone]) via Ambulance transportation at 11AM. KINZA spoke with admin coordinator, Selene at the facility who states they are ready to accept the patient today. Pt is aware and agreeable with discharge plan. Pts son, Kevin [phone] is aware and agreeable with the discharge plan Pt is aware and agreeable with discharge plan. Pt is alert and oriented x1, is unable to plan for self-care at this time. However, pt is willing to accept care at SNF. Pt denies any suicidal or homicidal ideation. Pt will follow-up at the facility with Psychiatrist, Dr. Burns ([phone]) and Internal Medicine Nurse Practitioner, Dr. Melendez. Pt presents with calm mood and congruent affect. PHARMACY: [facility]: [phone]) [id number] [facility], [address], [place] [address].
[2022-09-24] MEDS: OLANZAPINE 5 MG TABLET PO SCH (09:22)
[2022-09-24] MEDS: CLOPIDOGREL 75 MG TABLET PO SCH (09:23)
[2022-09-24] MEDS: PREGABALIN 50 MG CAPSULE PO SCH (09:23)
[2022-09-24] MEDS: DIVALPROEX 250 MG TABLET.DR PO SCH (09:23)
[2022-09-24] MEDS: MIRALAX 17 GM POWD.PACK PO SCH (09:24)
[2022-09-24] MEDS: DOCUSATE SODIUM 100 MG CAPSULE PO SCH (09:26)
--- NOTE | 2022-09-24 10:45 | NUR ---
Nursing- Called [facility] (SNF) report was given to Radha Tao.. Patients' son Kevin was well informed and aware of the discharge plan. All belongings was all gathered prepared and will be sent with patient when she leaves . Patient in no sign of any distress, no discomfort , no S.I., no H.I. confused, redirectable , clam and congruent affect. Arranged berry picker time at 11 am.
--- NOTE | 2022-09-24 12:04 | NUR ---
[facility] was given back to patient
== END 2022-09-24 11:45 | DRG 885 ==
LOC: ER 17:10 → GPS 23:06
PROVIDERS: ADMIT Psychiatry & Neurology Psychosomatic Medicine; ATTEND Nurse Practitioner Acute Care
DX: F25.9 Schizoaffective disorder, unspecified (principal); F03.911 Unspecified dementia, unspecified severity, with agitation; E87.0 Hyperosmolality and hypernatremia; D64.9 Anemia, unspecified; G40.909 Epilepsy, unspecified, not intractable, without status epilepticus; K21.9 Gastro-esophageal reflux disease without esophagitis; K59.00 Constipation, unspecified; Z85.3 Personal history of malignant neoplasm of breast; Z86.73 Personal history of transient ischemic attack (TIA), and cerebral infarction without residual deficits; Z88.0 Allergy status to penicillin; Z88.2 Allergy status to sulfonamides; Z20.822 Contact with and (suspected) exposure to COVID-19; Z73.6 Limitation of activities due to disability; E78.5 Hyperlipidemia, unspecified; F29 Unspecified psychosis not due to a substance or known physiological condition; F31.64 Bipolar disorder, current episode mixed, severe, with psychotic features; I10 Essential (primary) hypertension
CPT/HCPCS: 36415; 70450; 80164; 85025; G0480; J1200; J1630; J2060; J3490